=== PATIENT | female | born 1990 | race Caucasian/White ===

== ENCOUNTER → 2018-07-24 14:48 | Outpatient (CLI) | payer OTHER, SELFPAY ==
[2018-07-24 15:11] LABS: Add Manual Diff / Slide Review NO; Basophils Absolute Auto 0 /uL (0-100); Basophils Percent Auto 0.4 % (0-2); Eosinophils Absolute Auto 600 /uL (0-450); Eosinophils Percent Auto 6.7 % (2-4); Hematocrit 40.3 % (36-46); Hemoglobin 13.7 g/dL (12.0-16.0); Lymphocytes Absolute Auto 2000 /uL (1100-4500); Lymphocytes Percent Auto 23.1 % (25-40); Mean Corpuscular Hemoglobin 29.8 PG (26-34); Mean Corpuscular Volume 87.7 fL (80-100); Monocytes Absolute Auto 500 /uL (0-900); Monocytes Percent Auto 5.9 % (3-14); Neutrophils Absolute Auto 5400 /uL (1500-7000); Neutrophils Percent Auto 63.9 % (50-75); Platelet Count 206 X10^3/uL (150-400); Red Blood Cell Count 4.59 X10^6/uL (4.0-5.2); Red Cell Distribution Width 12.3 % (11.6-14.8); White Blood Cell Count 8.5 X10^3/uL (4.5-11.0)
[2018-07-24 15:30] LABS: Alanine Aminotransferase 15 IU/L (9-52); Albumin 4.8 g/dL (3.5-5.0); Albumin Globulin Ratio 1.8 (1.0-2.8); Alkaline Phosphatase 56 U/L (38-126); Aspartate Aminotransferase 20 IU/L (14-36); BUN Creatinine Ratio 16.3 (6-22); Bilirubin Total 0.6 mg/dL (0.2-1.3); Blood Urea Nitrogen 13 mg/dL (7-17); Calcium 9.5 mg/dL (8.4-10.2); Carbon Dioxide 25 mmol/L (22-32); Chloride 103 mmol/L (98-107); Estimated Glomerular Filt Rate > 60.0 mL/min (>60); Globulin 2.6 g/dL (1.7-4.1); Glucose 89 mg/dL (70-100); HEMOLYSIS < 15 (0-50); Potassium 3.5 mmol/L (3.4-5.1); Sodium 138 mmol/L (137-145); Total Protein 7.4 g/dL (6.3-8.2)
[2018-07-24 15:45] LABS: Follicle Stimulating Hormone 2.85 mIU/mL
[2018-07-24 15:46] LABS: Prolactin 21.2 ng/mL (3.0-18.6)
[2018-07-24 16:00] LABS: TSH w/ Reflex to FT4 2.55 uIU/mL (0.47-4.68)
== END ==
PROVIDERS: PCP Family Medicine; Visit Provider Family Medicine
DX: N64.3 Galactorrhea not associated with childbirth (principal); R61 Generalized hyperhidrosis
CPT/HCPCS: 36415; 80053; 83001; 84146; 84443; 85025

== ENCOUNTER → 2018-07-31 07:20 | Outpatient (CLI) | payer OTHER, SELFPAY ==
[2018-07-31 08:57] LABS: Prolactin 19.9 ng/mL (3.0-18.6)
== END ==
PROVIDERS: PCP Family Medicine; Visit Provider Family Medicine
DX: N64.3 Galactorrhea not associated with childbirth (principal); R61 Generalized hyperhidrosis
CPT/HCPCS: 36415; 84146

== ENCOUNTER 2018-08-28 11:59 | Emergency (ER) | payer OTHER, SELFPAY ==
[2018-08-28 12:00] VITALS: BP 117/81; PULSE 70; RESP 16; TEMP 36.4; O2SAT 100; BMI 19.5
[2018-08-28] MEDS: MORPHINE 2 MG/ML INJ IV (13:38)
[2018-08-28] MEDS: ONDANSETRON 4 MG/2 ML INJ IV (13:39)
[2018-08-28] MEDS: SODIUM CHLORIDE 0.9% 500 ML 1000 ML IV (13:39)
[2018-08-28 13:51] LABS: Add Manual Diff / Slide Review NO; Basophils Absolute Auto 100 /uL (0-100); Basophils Percent Auto 0.7 % (0-2); Eosinophils Absolute Auto 300 /uL (0-450); Eosinophils Percent Auto 3.8 % (2-4); Hematocrit 41.5 % (36-46); Hemoglobin 14.3 g/dL (12.0-16.0); Lymphocytes Absolute Auto 1800 /uL (1100-4500); Lymphocytes Percent Auto 23.5 % (25-40); Mean Corpuscular HGB Conc 34.5 % (30-36); Mean Corpuscular Hemoglobin 30.2 PG (26-34); Mean Corpuscular Volume 87.6 fL (80-100); Monocytes Absolute Auto 300 /uL (0-900); Monocytes Percent Auto 4.2 % (3-14); Neutrophils Absolute Auto 5300 /uL (1500-7000); Neutrophils Percent Auto 67.8 % (50-75); Platelet Count 234 X10^3/uL (150-400); Red Blood Cell Count 4.73 X10^6/uL (4.0-5.2); Red Cell Distribution Width 12.5 % (11.6-14.8); White Blood Cell Count 7.8 X10^3/uL (4.5-11.0)
[2018-08-28 13:59] LABS: Alanine Aminotransferase 8 IU/L (9-52); Albumin 4.9 g/dL (3.5-5.0); Albumin Globulin Ratio 1.6 (1.0-2.8); Alkaline Phosphatase 60 U/L (38-126); Amylase 76 U/L (30-110); Aspartate Aminotransferase 20 IU/L (14-36); BUN Creatinine Ratio 17.1 (6-22); Bilirubin Total 0.6 mg/dL (0.2-1.3); Blood Urea Nitrogen 12 mg/dL (7-17); Calcium 9.8 mg/dL (8.4-10.2); Carbon Dioxide 24 mmol/L (22-32); Chloride 108 mmol/L (98-107); Estimated Glomerular Filt Rate > 60.0 mL/min (>60); Globulin 3.1 g/dL (1.7-4.1); Glucose 90 mg/dL (70-100); HEMOLYSIS < 15 (0-50); Lipase 70 U/L (23-300); Potassium 3.5 mmol/L (3.4-5.1); Sodium 141 mmol/L (137-145)
--- NOTE | 2018-08-28 14:12 | DI.US.S_ITS ---
PROCEDURE: US PELVIC COMPLETE INDICATIONS: LLQ PAIN, HX ENDO TECHNIQUE: Real-time scanning was performed of the pelvic organs, with image documentation. Additional endovaginal scanning was necessary due to incomplete visualization of the adnexal and endometrial structures by transabdominal scanning. COMPARISON: None. FINDINGS: Transabdominal scanning: Limited scanning through the kidneys shows no hydronephrosis. No pathologic free abdominal or pelvic fluid. Endovaginal scanning: Uterus: Surgically absent. Ovaries: The right ovary has also been surgically removed. The left ovary measures 3.9 x 1.9-1.9 cm and is within normal limits. No cystic or solid ovarian lesion is evident. Normal left ovarian follicles are present. Blood flow is demonstrated to the left ovary. IMPRESSION: 1. The left ovary is within normal limits. 2. The right ovary and uterus are surgically absent. Dictated by: Dylon Galarza M.D. on 08/28/2018 at 15:18 Approved by: Dylon Galarza M.D. on 08/28/2018 at 15:22
[2018-08-28 15:28] VITALS: BP 120/86; PULSE 72; RESP 18; O2SAT 99
--- NOTE | 2018-08-28 18:47 | ED_ITS ---
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 She states she has had her uterus and right ovary is surgically removed. She has also had a tubal ligation prior to this. She believes that her left lower quadrant pain is related to endometriosis. She complains of s light nausea. No vomiting, no fevers, no chest pain or shortness of breath. She denies any vaginal discharge, vaginal bleeding or concern of sexually transmitted infections. She denies any dysuria urgency frequency or flank pain. She states that she has had several abdominal CTs, and would like to avoid CTs if possible. Related Data Previous Rx's Medication Instructions Recorded acetaminophen-codeine 1 tab PO Q4-6H PRN #7 tab 08/28/18 ondansetron 4 mg PO Q6H PRN #20 tab 08/28/18 Allergies Allergy/AdvReac Type Severity Reaction Status Date / Time Penicillins Allergy Unknown Verified 08/28/18 15:04 NSAIDS (Non-Steroidal Allergy Chest Pain Verified 08/28/18 12:21 Anti-Inflamma Twoqromo-1-RF9 Antimigraine Allergy Chest Pain Verified 08/28/18 12:21 Agents oseltamivir [From Tamiflu] AdvReac Chest Pain Verified 08/28/18 12:21 Review of Systems <LAURA Zuniga - Last Filed: 08/28/18 19:33> Review of Systems GENERAL: Denies chills, fatigue, malaise, fever, sweats. HEENT: Denies sinus pain, ear pain, sore throat, difficulty swallowing, dizziness. RESPIRATORY: Denies dyspnea, cough, wheezing, hemoptysis, sputum. CARDIOVASCULAR: Denies chest pain, palpitations, orthopnea, edema, GASTROINTESTINAL: See HPI : Denies dysuria, frequency, incontinence, hematuria, urinary retention. MUSCULOSKELETAL: denies weakness, joint pain, or bony pain SKIN: Denies rash, skin lesions, or other NEUROLOGIC: Denies weakness, headache, numbness, change in speech, confusion, seizures, incoordination. PSYCHIATRIC: No concerning psychosocial issues. 12 point review of systems is negative except for those stated above PFSH <MELODY Zuniga - Last Filed: 08/28/18 19:33> Medical History (Updated 08/28/18 @ 19:30 by MELODY Zuniga) Endometriosis (Acute) History of hysterectomy (Acute) Social History Smoking Status: Never smoker Social History Smoking Status: Never smoker Exam <MELODY Zuniga - Last Filed: 08/28/18 19:33> Narrative Exam Narrative: GENERAL: This is a well-nourished, well-developed patient, ho lding warm pack on stomach HEAD: Atraumatic. Normocephalic. No temporal or scalp tenderness. EYES: Pupils equal round and reactive. Extraocular motions intact. No scleral icterus. No injection or drainage. ENT: Nose without bleeding, purulent drainage or septal hematoma. Throat without erythema, tonsillar hypertrophy or exudate. Uvula midline. Airway patent. NECK: Trachea midline. No JVD or lymphadenopathy. Supple, nontender, no meningeal signs. CARDIOVASCULAR: Regular rate and rhythm without murmurs, gallops, or rubs. RESPIRATORY: Clear to auscultation. Breath sounds equal bilaterally. No wheezes, rales, or rhonchi. No cough. No increased respiratory effort. No accessory muscle use. GASTROINTESTINAL: Abdomen soft,, nondistended. No hepato-splenomegaly, or palpable masses. Tenderness to palpation of left lower quadrant No guarding. EXTREMITIES: No clubbing, cyanosis, or edema. No joint tenderness, effusion, or edema noted. BACK: Nontender without deformity or crepitance. No flank tenderness. NEURO: AOx3. SKIN: No rash or erythema. Initial Vital Signs Initial Vital Signs: Vital Signs Temperature 97.6 F 08/28/18 12:00 Pulse Rate 70 08/28/18 12:00 Respiratory Rate 16 08/28/18 12:00 Blood Pressure 117/81 08/28/18 12:00 Pulse Oximetry 100 08/28/18 12:00 <Melany Maloney DO - Last Filed: 09/01/18 07:37> Initial Vital Signs Initial Vital Signs: Vital Signs Temperature 97.6 F 08/28/18 12:00 Pulse Rate 70 08/28/18 12:00 Respiratory Rate 16 08/28/18 12:00 Blood Pressure 117/81 08/28/18 12:00 Pulse Oximetry 100 08/28/18 12:00 Course <JENNY ZunigaP-BC - Last Filed: 08/28/18 19:33> Orders Ordered: Discontinued Medications Sodium Chloride (Normal Saline 0.9%) 500 mls @ 1,000 mls/hr IV BOLUS ONE Stop: 08/28/18 13:31 Last Infusion: 08/28/18 15:15 Dose: 0 mls/hr Admin: 08/28/18 13:39 Dose: 1,000 mls/hr Morphine Sulfate (Morphine) 2 mg IV NOW ONE Stop: 08/28/18 13:03 Last Admin: 08/28/18 13:38 Dose: 2 mg Ondansetron HCl (Zofran) 4 mg IV NOW ONE Stop: 08/28/18 13:03 Last Admin: 08/28/18 13:39 Dose: 4 mg Vital Signs - 8 hr 08/28/18 12:00 08/28/18 15:28 Temperature 97.6 F Pulse Rate 70 72 Respiratory Rate 16 18 Blood Pressure 117/81 Blood Pressure [Right Arm] 120/86 Pulse Oximetry 100 99 <Melany Maloney DO - Last Filed: 09/01/18 07:37> Orders Ordered: Discontinued Medications Sodium Chloride (Normal Saline 0.9%) 500 mls @ 1,000 mls/hr IV BOLUS ONE Stop: 08/28/18 13:31 Last Infusion: 08/28/18 15:15 Dose: 0 mls/hr Admin: 08/28/18 13:39 Dose: 1,000 mls/hr Morphine Sulfate (Morphine) 2 mg IV NOW ONE Stop: 08/28/18 13:03 Last Admin: 08/28/18 13:38 Dose: 2 mg Ondansetron HCl (Zofran) 4 mg IV NOW ONE Stop: 08/28/18 13:03 Last Admin: 08/28/18 13:39 Dose: 4 mg Vital Signs - 8 hr 08/28/18 12:00 08/28/18 15:28 Temperature 97.6 F Pulse Rate 70 72 Respiratory Rate 16 18 Blood Pressure 117/81 Blood Pressure [Right Arm] 120/86 Pulse Oximetry 100 99 MDM - Abdominal Pain <Melany Triplett, FIRE TENDER-BC - Last Filed: 08/28/18 19:33> Lab Data Result diagrams: 08/28/18 13:35 08/28/18 13:35 Lab Results 08/28/18 08/28/18 Range/Units 13:35 13:35 WBC 7.8 (4.5-11.0) X10^3/uL RBC 4.73 (4.0-5.2) X10^6/uL Hgb 14.3 (12.0-16.0) g/dL Hct 41.5 (36-46) % MCV 87.6 (80-100) fL MCH 30.2 (26-34) PG MCHC 34.5 (30-36) % RDW 12.5 (11.6-14.8) % Plt Count 234 (150-400) X10^3/uL Neut % (Auto) 67.8 (50-75) % Lymph % (Auto) 23.5 L (25-40) % [place] % (Auto) 4.2 (3-14) % Eos % (Auto) 3.8 (2-4) % Baso % (Auto) 0.7 (0-2) % Neut # (Auto) 5300 (8514-1278) /uL Lymph # (Auto) 1800 (4830-9759) /uL [place] # (Auto) 300 (0-900) /uL Eos # (Auto) 300 (0-450) /uL Baso # (Auto) 100 (0-100) /uL Sodium 141 (137-145) mmol/L Potassium 3.5 (3.4-5.1) mmol/L Chloride 108 H (98-107) mmol/L Carbon Dioxide 24 (22-32) mmol/L BUN 12 (7-17) mg/dL Creatinine 0.70 (0.52-1.04) mg/dL Estimated GFR > 60.0 (>60) mL/min BUN/Creatinine Ratio 17.1 (6-22) Glucose 90 (70-100) mg/dL Calcium 9.8 (8.4-10.2) mg/dL Total Bilirubin 0.6 (0.2-1.3) mg/dL AST 20 (14-36) IU/L ALT 8 L (9-52) IU/L Alkaline Phosphatase 60 (38-126) U/L Total Protein 8.0 (6.3-8.2) g/dL Albumin 4.9 (3.5-5.0) g/dL Globulin 3.1 (1.7-4.1) g/dL Albumin/Globulin Ratio 1.6 (1.0-2.8) Amylase 76 (30-110) U/L Lipase 70 (23-300) U/L Point of care testing: Urine Dip Bedside Urine Glucose Negative Bedside Urine Bilirubin - Negative Bedside Urine Ketone - Negative Urine Specific [place] 1.015 Bedside Urine Occult Blood - Negative Bedside Urine pH 6.5 Bedside Urine Protein - Negative Bedside Urine Urobilinogen - Negative Bedside Urine Nitrite - Negative Bedside Urine Leukocytes - Negative Esterase Imaging Data Pelvis ultrasound: Radiologist's impression: Chart [facility]er Diagnostics DATE TYPE STATUS AUTHOR Hx 08/28/18 14:12 Chandu GalarzadidiJocelyn Paniagua 28, F0 1990 DEP ER, ED.LOC - Main ED 160.02cm 49.895kg BMI: 19.5kg/m? Urogenital-Female Search Chart No Data to Display Chest Pain Chest Pain Chest Pain ONSET Today 15:28 Jocelyn Link 28 F 1990 [place] [address] Ultrasound Report Signed Patient: Jocelyn Link TMR#: [id number] : 1990Acct:[id number] Age/Sex: 28 / FDate of Service: 08/28/18 Loc: ED Accession Number: [id number] Procedure: US pelvic complete Ordering Provider: Melany TriplettP- PROCEDURE: US PELVIC COMPLETE INDICATIONS: LLQ PAIN, HX ENDO TECHNIQUE: Real-time scanning was performed of the pelvic organs, with image documentation. Additional endovaginal scanning was necessary due to incomplete visualization of the adnexal and endometrial structures by transabdominal scanning. COMPARISON: None. FINDINGS: Transabdominal scanning: Limited scanning through the kidneys shows no hydronephrosis. No pathologic free abdominal or pelvic fluid. Endovaginal scanning: Uterus: Surgically absent. Ovaries: The right ovary has also been surgically removed. The left ovary measures 3.9 x 1.9-1.9 cm and is within normal limits. No cystic or solid ovarian lesion is evident. Normal left ovarian follicles are present. Blood flow is demonstrated to the left ovary. IMPRESSION: 1. The left ovary is within normal limits. 2. The right ovary and uterus are surgically absent. Dictated by: Dylon Galarza M.D. on 08/28/2018 at 15:18 Approved by: Dylon Galarza M.D. on 08/28/2018 at 15:22 [facility] Narrative Medical decision making narrative: The patient is a 28-year-old female presents with left lower quadrant abdominal pain. She did not want to get a CT and left absolutely necessary. Given that she does not have a fever, does not have an elevated white blood cell count does not have an acute exam, we have agreed to proceed with a ultrasound at this point time. Had no acute findings. The patient still did not want to get imaging at that point time. I discussed at length return precautions including inability keep down fluids, fever etc. Encouraged follow-up with PCP. I did give the patient a small pain medication and nausea medication prescription. Patient has no questions or concerns upon discharge. <Melany Maloney, DO - Last Filed: 09/01/18 07:37> Lab Data Lab Results 08/28/18 08/28/18 Range/Units 13:35 13:35 WBC 7.8 (4.5-11.0) X10^3/uL RBC 4.73 (4.0-5.2) X10^6/uL Hgb 14.3 (12.0-16.0) g/dL Hct 41.5 (36-46) % MCV 87.6 (80-100) fL MCH 30.2 (26-34) PG MCHC 34.5 (30-36) % RDW 12.5 (11.6-14.8) % Plt Count 234 (150-400) X10^3/uL Neut % (Auto) 67.8 (50-75) % Lymph % (Auto) 23.5 L (25-40) % [place] % (Auto) 4.2 (3-14) % Eos % (Auto) 3.8 (2-4) % Baso % (Auto) 0.7 (0-2) % Neut # (Auto) 5300 (2319-0239) /uL Lymph # (Auto) 1800 (1637-2539) /uL [place] # (Auto) 300 (0-900) /uL Eos # (Auto) 300 (0-450) /uL Baso # (Auto) 100 (0-100) /uL Sodium 141 (137-145) mmol/L Potassium 3.5 (3.4-5.1) mmol/L Chloride 108 H (98-107) mmol/L Carbon Dioxide 24 (22-32) mmol/L BUN 12 (7-17) mg/dL Creatinine 0.70 (0.52-1.04) mg/dL Estimated GFR > 60.0 (>60) mL/min BUN/Creatinine Ratio 17.1 (6-22) Glucose 90 (70-100) mg/dL Calcium 9.8 (8.4-10.2) mg/dL Total Bilirubin 0.6 (0.2-1.3) mg/dL AST 20 (14-36) IU/L ALT 8 L (9-52) IU/L Alkaline Phosphatase 60 (38-126) U/L Total Protein 8.0 (6.3-8.2) g/dL Albumin 4.9 (3.5-5.0) g/dL Globulin 3.1 (1.7-4.1) g/dL Albumin/Globulin Ratio 1.6 (1.0-2.8) Amylase 76 (30-110) U/L Lipase 70 (23-300) U/L Point of care testing: Urine Dip Bedside Urine Glucose Negative Bedside Urine Bilirubin - Negative Bedside Urine Ketone - Negative Urine Specific [place] 1.015 Bedside Urine Occult Blood - Negative Bedside Urine pH 6.5 Bedside Urine Protein - Negative Bedside Urine Urobilinogen - Negative Bedside Urine Nitrite - Negative Bedside Urine Leukocytes - Negative Esterase Discharge Plan Departure Patient Disposition: Home Clinical Impression: Abdominal pain Qualifiers: Abdominal location: left lower quadrant Qualified Code(s): R10.32 - Left lower quadrant pain Discharge Date/Time: 08/28/18 16:14 Interventions: ED Discharge Assessment Last Done: 08/28/18 16:13 Instructions: DI for Abdominal Pain-Adult Activity Restrictions/Additional Instructions: We could not find an objective reason for your abdominal pain today. As we discussed, please come back to the emergency department for any worsening, inability keep down fluids etc. You elected to defer a CT scan at this point time, which I am okay with given her exam and normal white blood cell count I have given you a small prescription of pain and nausea medications. Please follow up with primary care provider. Be aware that the Tylenol with codeine can be constipating and sedating. Do not take it and drive or drink alcohol. Prescriptions: New ondansetron 4 mg tablet,disintegrating 4 mg PO Q6H PRN (Reason: nausea and vomiting) Qty: 20 RF: 0 acetaminophen-codeine 300-15 mg tablet 1 tab PO Q4-6H PRN (Reason: pain) Qty: 7 RF: 0 Referrals: Ivett Patel DO [Primary Care Provider] - <Melany Maloney DO - Last Filed: 09/01/18 07:37> Cosign ED Attending Terrellature Attestation: I was immediately available in the department for consultation. This documentation has been reviewed and I agree with assessment and plan. Supervised by Melany Maloney DO
== END 2018-08-28 16:14 | disposition home or self-care (01) ==
PROVIDERS: Emergency Provider Nurse Practitioner Family; PCP Family Medicine
DX: R10.32 Left lower quadrant pain (principal)
CPT/HCPCS: 36591; 76830; 76856; 80053; 81003; 82150; 83690; 85025; 96361; 96374; 96375; 99283; 99284; J2270; J2405

== ENCOUNTER → 2019-04-17 09:04 | Outpatient (CLI) | payer OTHER, SELFPAY ==
[2019-04-17 09:39] LABS: Add Manual Diff / Slide Review NO; Basophils Absolute Auto 100 /uL (0-100); Basophils Percent Auto 1.2 % (0-2); Eosinophils Absolute Auto 500 /uL (0-450); Eosinophils Percent Auto 9.2 % (2-4); Hematocrit 41.4 % (36-46); Hemoglobin 14.8 g/dL (12.0-16.0); Lymphocytes Absolute Auto 2000 /uL (1100-4500); Lymphocytes Percent Auto 36.9 % (25-40); Mean Corpuscular HGB Conc 35.7 % (30-36); Mean Corpuscular Hemoglobin 30.8 PG (26-34); Mean Corpuscular Volume 86.4 fL (80-100); Monocytes Absolute Auto 300 /uL (0-900); Monocytes Percent Auto 5.8 % (3-14); Neutrophils Absolute Auto 2500 /uL (1500-7000); Neutrophils Percent Auto 46.9 % (50-75); Platelet Count 236 X10^3/uL (150-400); Red Blood Cell Count 4.79 X10^6/uL (4.0-5.2); Red Cell Distribution Width 12.3 % (11.6-14.8); White Blood Cell Count 5.4 X10^3/uL (4.5-11.0)
[2019-04-17 10:09] LABS: Alanine Aminotransferase 9 IU/L (<35); Albumin 5.2 g/dL (3.5-5.0); Albumin Globulin Ratio 1.7 (1.0-2.8); Alkaline Phosphatase 61 U/L (38-126); Aspartate Aminotransferase 24 IU/L (14-36); BUN Creatinine Ratio 12.5 (6-22); Bilirubin Total 0.8 mg/dL (0.2-1.3); Blood Urea Nitrogen 10 mg/dL (7-17); Calcium 10.2 mg/dL (8.4-10.2); Carbon Dioxide 28 mmol/L (22-32); Chloride 103 mmol/L (98-107); Estimated Glomerular Filt Rate > 60.0 mL/min (>60); Glucose 89 mg/dL (70-100); HEMOLYSIS < 15 (0-50); Sodium 142 mmol/L (137-145); Total Protein 8.2 g/dL (6.3-8.2)
[2019-04-17 10:25] LABS: Follicle Stimulating Hormone 6.29 mIU/mL; Free T4, Direct Thyroxine 1.17 ng/dL (0.78-2.19); Luteinizing Hormone 8.63 mIU/mL
[2019-04-17 10:27] LABS: Prolactin 18.1 ng/mL (3.0-18.6)
[2019-04-17 10:38] LABS: Thyroid Stimulating Hormone 1.74 uIU/mL (0.47-4.68)
[2019-04-21 10:35] LABS: Z- Score (Female) -0.1 SD (-2.0 - +2.0)
[2019-04-21 16:03] LABS: Adrenocorticotropic Hormone 11 pg/mL (6-50)
== END ==
PROVIDERS: PCP Family Medicine; Referring Provider Family Medicine; Visit Provider Family Medicine
DX: H53.9 Unspecified visual disturbance (principal); N64.3 Galactorrhea not associated with childbirth; R51 Headache
CPT/HCPCS: 36415; 80053; 82024; 83001; 83002; 84146; 84305; 84439; 84443; 84481; 85025

== ENCOUNTER → 2019-05-05 08:08 | Outpatient (CLI) | payer OTHER, SELFPAY ==
--- NOTE | 2019-05-05 08:09 | DI.US.S_ITS ---
PROCEDURE: US PELVIC COMPLETE INDICATIONS: LEFT PELVIC PAIN TECHNIQUE: Real-time scanning was performed of the pelvic organs, with image documentation. Additional endovaginal scanning was necessary due to incomplete visualization of the adnexal and endometrial structures by transabdominal scanning. COMPARISON: [facility], , PELVIC COMPLETE, 08/28/2018, 14:39. FINDINGS: Transabdominal scanning: Limited scanning through the kidneys shows no hydronephrosis. No pathologic free abdominal or pelvic fluid. Endovaginal scanning: Uterus: Prior hysterectomy. Ovaries: Prior right oophorectomy. The left ovary measures up to 2.1 x 4.2 x 3.7 cm and contains a 2.1 x 1.6 x 2.6 cm soft tissue mass appears solid with elevated vascularity along its periphery. IMPRESSION: Prior hysterectomy and right-sided oophorectomy. Left-sided remaining ovary contains a solid appearing mass with increased vascularity along its periphery. This may represent a hemorrhagic or proteinaceous ovarian cyst with sufficient internal echotexture to mimic a solid mass. Followup ultrasound in 6-8 weeks is recommended and if this appearance persists gynecological surgical consultation would be recommended. Dictated by: Gucci Hampton M.D. on 05/05/2019 at 11:19 Approved by: Gucci Hampton M.D. on 05/05/2019 at 11:29
== END ==
PROVIDERS: PCP Family Medicine; Referring Provider Family Medicine; Visit Provider Family Medicine
DX: R10.2 Pelvic and perineal pain (principal); N83.9 Noninflammatory disorder of ovary, fallopian tube and broad ligament, unspecified; Z90.710 Acquired absence of both cervix and uterus
CPT/HCPCS: 76830; 76856

== ENCOUNTER → 2019-10-28 08:05 | Outpatient (CLI) | payer OTHER, SELFPAY ==
--- NOTE | 2019-10-28 08:06 | DI.US.S_ITS ---
ULTRASOUND OF LEFT BREAST: 10/28/2019 CLINICAL: Palpable left breast lump. Comparison is made to exam dated: 10/28/2019 [facility]. Ultrasound of the left breast was performed on the area of interest. [place] scale images of the real-time examination were reviewed. IMPRESSION: NEGATIVE There is no sonographic evidence of malignancy. There is no mammographic or sonographic abnormality seen in the left breast to correspond with the palpable abnormality, however, clinical followup is recommended. This exam was interpreted at Station ID: [id number]. Electronically Signed By: Lydia Sanchez M.D. lk/:10/28/2019 10:25:30 letter sent: Clinical Evaluation Ultrasound BI-RADS: 1 Negative
--- NOTE | 2019-10-28 08:06 | DI.US.S_ITS ---
ULTRASOUND OF RIGHT BREAST: 10/28/2019 CLINICAL: Palpable right breast lump. Comparison is made to [facility] of the right breast was performed on the area of interest. [place] scale images of the real-time examination were reviewed. IMPRESSION: NEGATIVE There is no sonographic evidence of malignancy. There is no mammographic or sonographic abnormality seen in the right breast to correspond with the palpable abnormality, however, clinical followup is recommended. This exam was interpreted at Station ID: [id number]. Electronically Signed By: Lydia leyva/:10/28/2019 10:26:02 letter sent: Clinical Evaluation Ultrasound BI-RADS: 1 Negative
--- NOTE | 2019-10-28 08:06 | DI.US.S_ITS ---
PROCEDURE: US PELVIC COMPLETE INDICATIONS: FOLLOW-UP OVARIAN MASS TECHNIQUE: Real-time scanning was performed of the pelvic organs, with image documentation. Additional endovaginal scanning was necessary due to incomplete visualization of the adnexal and endometrial structures by transabdominal scanning. COMPARISON: [facility], US, US PELVIC COMPLETE, 05/05/2019, 8:33. FINDINGS: Transabdominal scanning: Limited scanning through the kidneys shows no hydronephrosis. No pathologic free abdominal or pelvic fluid. Endovaginal scanning: Uterus: Uterus is absent. Ovaries: Right ovary is absent. Left ovary measures 38 x 22 x 37 mm. There is previously identified focus of heterogeneous echogenicity within the left ovary. It is less conspicuous compared to prior exam. Multiple adjacent follicles are present. IMPRESSION: 1. Less conspicuous appearance of ovarian focus of heterogeneous echogenicity as described above. This could represent a focus of involuting hemorrhagic cyst. However, other etiology is simply a heterogeneous ovarian tissue of benign etiology. One additional six-month interval pelvic ultrasound follow-up Is recommended. Dictated by: Liv Padilla M.D. on 10/28/2019 at 10:15 Approved by: Liv Padilla M.D. on 10/28/2019 at 10:38
--- NOTE | 2019-10-28 08:06 | DI.MG.S_ITS ---
BILATERAL DIGITAL DIAGNOSTIC MAMMOGRAM 3D/2D: 10/28/2019 CLINICAL: Baseline exam. Bilateral lumps. No prior exams were available for comparison. The tissue of both breasts is extremely dense, which lowers the sensitivity of mammography. No significant masses, calcifications, or other findings are seen in either breast. IMPRESSION: INCOMPLETE: NEEDS ADDITIONAL IMAGING EVALUATION There is no mammographic abnormality seen in either breast to correspond with the palpable abnormalities, however, targeted ultrasound of the bilateral breasts is recommended and will be performed immediately following this exam. This exam was interpreted at Station ID: [id number]. NOTE: For mammograms, a report in lay terms will be sent to the patient. Approximately 15% of breast malignancies will not be visualized mammographically. In the management of a palpable breast mass, a negative mammogram must not discourage biopsy of a clinically suspicious lesion. Electronically Signed By: Lydia leyva/:10/28/2019 09:19:05 ACR BI-RADS Category 0: Incomplete [id number]
== END ==
PROVIDERS: PCP Family Medicine; Referring Provider Family Medicine; Visit Provider Obstetrics & Gynecology
DX: R92.8 Other abnormal and inconclusive findings on diagnostic imaging of breast (principal); N63.10 Unspecified lump in the right breast, unspecified quadrant; N63.20 Unspecified lump in the left breast, unspecified quadrant; N64.3 Galactorrhea not associated with childbirth; N83.9 Noninflammatory disorder of ovary, fallopian tube and broad ligament, unspecified
CPT/HCPCS: 76642; 76830; 76856; 77066; G0279

== ENCOUNTER → 2021-02-15 11:42 | Outpatient (CLI) | payer OTHER, SELFPAY ==
[2021-02-15 14:46] LABS: COVID19 -Nasal RAPID Negative (Negative)
== END ==
PROVIDERS: PCP Family Medicine; Visit Provider Physician Assistant
DX: Z20.822 Contact with and (suspected) exposure to COVID-19 (principal)
CPT/HCPCS: 87635

== ENCOUNTER 2021-02-17 09:48 | Day surgery (SDC) | payer OTHER, SELFPAY ==
[2021-02-17] VITALS (11 sets, daily range): BP systolic 85–120; BP diastolic 47–79; PULSE 60–83; RESP 12–18; TEMP 36.5–37.1; O2SAT 96–100
[2021-02-17] MEDS: ACETAMINOPHEN 325 MG TABLET 650 MG PO (10:28)
[2021-02-17] MEDS: LACTATED RINGERS 1,000 ML 42 ML IV ×2 (10:29→12:42)
--- NOTE | 2021-02-17 11:09 | PM.PREOP ---
Pre-operative Note COVID-19 COVID-19 status: Negative Interval Note History & Physical reviewed/Exam performed by Physician: Yes Changes to H&P: No
[2021-02-17] MEDS: SCOPOLAMINE 1 PATCH TOP (11:21)
[2021-02-17] MEDS: ACETAMINOPHEN 325 MG TABLET 975 MG PO (11:21)
[2021-02-17] MEDS: CLINDAMYCIN 900 MG/50 ML PIGGYBACK 50 MG IV (11:57)
--- NOTE | 2021-02-17 12:15 | SUR.OPER ---
Supine on padded OR bed, head on pillow, arms secured on padded arm boards at <90 degrees abduction. legs uncrossed. Blankets placed under patient's left leg and secured in place with tape. safety belt at abdomen.
[2021-02-17] MEDS: BUPIVACAINE 0.25% (PF) 30 ML, EPINEPHrine 0.15 MG INJ (12:27)
--- NOTE | 2021-02-17 13:27 | PM.OP.1 ---
Operative Date/Time/Diagnoses Date of procedure: 02/17/21 Time of procedure: 12:00 Pre-op diagnosis: Osteochondral defect left 1st metatarsal M95.8 Swelling 1st metatarsophalangeal joint M25.476 Post-op diagnosis: same Procedure & Clinicians Procedure: Unlisted procedure foot or toes, left CPT code 47182-TU, compared to CPT code 27116 * detailed description of procedure was an arthrotomy and repair of the osteochondral defect left 1st metatarsal head with allograft cartilage grafting and platelet rich plasma Same procedure as scheduled: Yes Indications: Patient is a 30-year-old female with a focal osteochondral defect of her left 1st metatarsal head. She has had pain on and off for years endorses swelling and pain of her 1st metatarsophalangeal joint. We discussed the risks and benefits of the procedure. She has been indicated for fixation of the osteochondral defect of the left 1st metatarsal head with drilling osteochondral allograft. We discussed risks of persistent pain, wound healing problems, infection, nerve damage, posttraumatic arthritis, further arthritis and need for additional procedures. We also discussed risks of blood clots myocardial infarction stroke in cardiopulmonary complications associated with general anesthesia. Discussed the object of this procedure is a joint sparing procedure for her focal osteochondral defect. She elected to proceed. Consent was signed in the office. Surgeon: Olimpia Jolly Click Yes if Unassisted: Yes Anesthesia Type: General and Local Operative Notes Findings: Focal osteochondral defect plantar 50% of 1st metatarsal head osteochondral defect measured approximately 4 x 3mm and was found on appearance to have a full-thickness loose cartilage flap when this was removed there was a 4 x 3 mm lesion Closure Type: primary Specimen(s): none sent Prosthetic devices, grafts, tissues, transplants, or devices: Arthrex bio cartilage allograft and platelet rich plasma sealed with Tisseel fibrin Estimated Blood Loss (mL): 2 Blood products transfused: none Tourniquet time (min): 30 Procedure in detail: Patient was seen in the preoperative area the site of surgery marked informed consent confirmed she was brought back to the operating room by the anesthesia team positioned supine on operative table. All bony prominences well padded. Well-padded thigh tourniquet was placed. The left lower extremities prepped and draped in the standard sterile fashion. a formal time-out procedure was performed confirming the patient's side and site of surgery presence of informed consent and ministry pringle appropriate preoperative antibiotic and this penicillin allergic patient 900 of clindamycin was administered. All were in agreement. Attention was turned to the left lower extremity. An Esmarch was used for exsanguination the tourniquet raised in the thigh to 250 mmHg. A longitudinal incision over the 1st MTP joint just medial to the EHL was taken down through the skin and subcutaneous tissues carefully. The EHL was retracted laterally. Capsulotomy was made and the 1st metatarsophalangeal joint was exposed. The 1st metatarsophalangeal joint was terminally plantar flexed and a loose flap of cartilage in the plantar 50% of the joint was identified this was lifted up to expose a 4 x 3 mm full-thickness osteochondral defect. The loose cartilage was trimmed using both a knife blade and a curette to expose the full extent of the lesion. This was debrided back to nice sharp stable cartilage border. At this point, 062 K-wire was used to drill the lesion to stimulate bleeding. This was done under cooling. Next the BioCartilage and PRP mixture was prepared. Blood was drawn by the anesthesia team and spun down to platelet rich plasma in the room and then passed to the back table with this was mixed with the BioCartilage allograft. Next the defect was dried thoroughly and the bio cartilage was applied. This was smoothed out using a [place] elevator making sure that it was not prominent and just a touch recessed to avoid prominence. Once this was in place the Tisseel fibrin glue was placed over the defect and a timer started for 5 minutes. The 1st MTP joint was held in plantar flexion to keep the area dry and free of contact while the fibrin glue solidified. After 5 minutes the joint was taken through range of motion noted to be smooth. The lesion was inspected thoroughly and was not prominent. And filled in very nicely with the allograft. There were no other lesions noted. At this point the wound was irrigated. The tourniquet was released. Hemostasis was achieved. Capsule Was closed with 2-0 Vicryl suture subcutaneous tissues with 4-0 Monocryl in the skin with 4-0 nylon suture. Order% Marcaine with epinephrine was used as local anesthetic. Dressing was placed with Xeroform gauze Matias wrap and an Fabricio bandage. The patient was woken from anesthesia and taken to recovery room in good condition. There no immediate complications from this procedure. Complications: none Post-operative Condition: stable Disposition: PACU Plan for aftercare: Patient will be flatfoot or heel weight-bearing in a postoperative shoe for 2 weeks. Will start range of motion after 1st postoperative appointment and dressing change
[2021-02-17] MEDS: OXYCODONE IR 5 MG TABLET PO ×2 (13:32→13:52)
--- NOTE | 2021-02-17 14:04 | SUR.PHASEII ---
Pt transfered to OPD 6 with SBAR report at bedside to Brianna ZUNIGA. Pt awak, alert, foot elevated, tolerating coffee and apple sauce.
--- NOTE | 2021-02-17 14:25 | SUR.PHASEII ---
pt given discharge instructions. Pt states she understands discharge instructions. pt denies pain . No complaints at present time. Pt States she is ready to go home. Pt . had cup of coffee and cup of gingerale.
== END 2021-02-17 14:30 | disposition home or self-care (01) ==
PROVIDERS: PCP Family Medicine; Referring Provider Podiatrist; Visit Provider Orthopaedic Surgery Foot and Ankle Surgery
PROC: 0QBP0ZZ Excision of Left Metatarsal, Open Approach (ICD-10-PCS; CPT 28292; principal; 2021-02-17 11:15)
DX: M95.8 Other specified acquired deformities of musculoskeletal system (principal); M25.475 Effusion, left foot
CPT/HCPCS: 28899; J0171; J1100; J2250; J2405; J2704; J3010

== ENCOUNTER → 2022-01-04 16:06 | Outpatient (CLI) | payer OTHER, SELFPAY ==
--- NOTE | 2022-01-04 16:08 | DI.RAD.S_ITS ---
PROCEDURE: XR FOOT RT MIN 3V INDICATIONS: foot pain TECHNIQUE: 3 views of the foot were acquired. COMPARISON: [facility], CR, XR FOOT LT MIN 3V, 01/04/2022, 16:21. FINDINGS: Bones: No fractures or dislocations. No suspicious bony lesions. Prominent os navicularis. Soft tissues: No tibiotalar joint effusion. Achilles tendon appears normal. IMPRESSION: Prominent os navicularis Dictated by: Lars Chambers [facility] Interpreted: Favian Astorga MD on 01/04/2022 at 16:36 Transcribed by: ANNAMARIA on 01/04/2022 at 16:36 Approved by: Favian Astorga M.D. on 01/04/2022 at 16:50
--- NOTE | 2022-01-04 16:08 | DI.RAD.S_ITS ---
PROCEDURE: XR FOOT LT MIN 3V INDICATIONS: foot pain TECHNIQUE: 3 views of the foot were acquired. COMPARISON: [facility], CR, XR FOOT RT MIN 3V, 01/04/2022, 16:20. FINDINGS: Bones: No fractures or dislocations. No suspicious bony lesions. Soft tissues: No tibiotalar joint effusion. Achilles tendon appears normal. IMPRESSION: Prominent os navicularis. Dictated by: Lars Chambers [facility] Interpreted: Favian Astorga MD on 01/04/2022 at 16:37 Transcribed by: ANNAMARIA on 01/04/2022 at 16:37 Approved by: Favian Astorga M.D. on 01/04/2022 at 16:50
== END ==
PROVIDERS: PCP Family Medicine; Referring Provider Family Medicine; Visit Provider Family Medicine
DX: M79.671 Pain in right foot (principal); M79.672 Pain in left foot
CPT/HCPCS: 73630

== ENCOUNTER 2022-01-14 10:38 | Emergency (ER) | payer OTHER, SELFPAY ==
[2022-01-14] VITALS (9 sets, daily range): BP systolic 96–133; BP diastolic 66–83; PULSE 57–86; RESP 16–25; TEMP 36.9; O2SAT 97–100
--- NOTE | 2022-01-14 10:50 | DI.RAD.S_ITS ---
PROCEDURE: XR CHEST 1V INDICATIONS: chest pain TECHNIQUE: One view of the chest was acquired. COMPARISON: None. FINDINGS: Surgical changes and devices: None. Lungs and pleura: Lungs are clear. No pleural effusions or pneumothorax. Mediastinum: Mediastinal contours appear normal. Heart size is normal. Bones and chest wall: No suspicious bony lesions. Overlying soft tissues appear unremarkable. IMPRESSION: No acute cardiopulmonary findings Approved by: Elroy Montes De Oca M.D. on 01/14/2022 at 10:54
[2022-01-14 11:08] LABS: Alanine Aminotransferase 10 IU/L (<35); Albumin 4.6 g/dL (3.5-5.0); Albumin Globulin Ratio 1.4 (1.0-2.8); Alkaline Phosphatase 81 U/L (38-126); Aspartate Aminotransferase 20 IU/L (14-36); BUN Creatinine Ratio 12.8 (6-22); Bilirubin Total 0.6 mg/dL (0.2-1.3); Blood Urea Nitrogen 10 mg/dL (7-17); Calcium 9.6 mg/dL (8.4-10.2); Carbon Dioxide 25 mmol/L (22-32); Chloride 103 mmol/L (98-107); Creatine Kinase 30 U/L (30-135); Estimated Glomerular Filt Rate > 60 mL/min (>60); Globulin 3.3 g/dL (1.7-4.1); Glucose 94 mg/dL (70-100); HEMOLYSIS < 15 (0-50); Lipase 91 U/L (23-300); Magnesium 1.9 mg/dL (1.6-2.3); Potassium 3.8 mmol/L (3.4-5.1); Sodium 140 mmol/L (137-145); Total Protein 7.9 g/dL (6.3-8.2)
[2022-01-14 11:13] LABS: Add Manual Diff / Slide Review NO; Basophils Absolute Auto 0 /uL (0-100); Basophils Percent Auto 0.9 % (0-2); Eosinophils Absolute Auto 200 /uL (0-450); Eosinophils Percent Auto 3.8 % (2-4); Hematocrit 39.5 % (36-46); Lymphocytes Absolute Auto 1600 /uL (1100-4500); Lymphocytes Percent Auto 38.4 % (25-40); Mean Corpuscular HGB Conc 35.5 % (30-36); Mean Corpuscular Hemoglobin 30.4 PG (26-34); Mean Corpuscular Volume 85.5 fL (80-100); Monocytes Absolute Auto 300 /uL (0-900); Monocytes Percent Auto 7.2 % (3-14); Neutrophils Absolute Auto 2100 /uL (1500-7000); Neutrophils Percent Auto 49.7 % (50-75); Platelet Count 256 X10^3/uL (150-400); Red Blood Cell Count 4.62 X10^6/uL (4.0-5.2); Red Cell Distribution Width 12.1 % (11.6-14.8); White Blood Cell Count 4.2 X10^3/uL (4.5-11.0)
[2022-01-14 11:20] LABS: Troponin I < 0.012 ng/mL (0.01-0.034)
--- NOTE | 2022-01-14 11:31 | ED_ITS ---
HPI - General Adult General Chief complaint: Shortness of Breath/Dyspnea Stated complaint: chest pain, SOB Time Seen by Provider: 01/14/22 11:07 Source: patient Mode of arrival: Family Vehicle Limitations: no limitations History of Present Illness HPI narrative: 31-year-old female who is here for evaluation of 10 days to 2 weeks of shortness of breath and intermittent chest discomfort. Approximately 1 week ago she went to a walk-in clinic. She states that she was tested for COVID and the flu and this was negative. She continues to have symptoms. No antibiotics. The intermittent chest discomfort that radiates from the center of her chest out. No lower extremity swelling. No underlying lung issues. Has subjective fevers. A cough. Nausea. No vomiting. Also states she is having problems concentrat ing. Does not use control pills. Has had a hysterectomy secondary to endometriosis. Related Data Allergies Allergy/AdvReac Type Severity Reaction Status Date / Time Penicillins Allergy Unknown Verified 04/07/21 09:55 NSAIDS (Non-Steroidal Allergy Chest Pain Verified 04/07/21 09:55 Anti-Inflamma [id number] Antimigraine Allergy Chest Pain Verified 04/07/21 09:55 Agents oseltamivir [From Tamiflu] AdvReac Chest Pain Verified 04/07/21 09:55 Review of Systems Review of Systems ROS Unobtainable: All systems reviewed & are unremarkable except as noted in HPI and below Patient History Medical History Abnormal Pap smear of cervix (~2012) Bilateral carpal tunnel syndrome Bilateral foot pain Bilateral hand pain Bilateral temporomandibular joint pain-dysfunction syndrome Cervical somatic dysfunction Chicken pox (~1995) Cranial somatic dysfunction Dairy product intolerance Endometriosis (~2017) Family history of breast cancer Fractures History of paroxysmal supraventricular tachycardia Intermittent palpitations Lumbar region somatic dysfunction Migraines Non-celiac gluten sensitivity Ovarian cyst Painful menstrual periods (~2003) Right hand pain Segmental and somatic dysfunction of abdomen and other regions SVT (supraventricular tachycardia) Thoracic region somatic dysfunction Upper extremity somatic dysfunction Surgical History (Updated 01/04/22 @ 16:23 by Jhon Stoddard DO) Anesthesia History of cardiac radiofrequency ablation History of dilatation and curettage (~2013) History of hysterectomy (~09/2017) History of tonsillectomy and adenoidectomy (~1995) History of tubal ligation (~07/2017) Family History (Updated 02/07/21 @ 10:07 by Jhon Stoddard DO) Mother Hyperlipidemia Sister Digestive problems Grandfather History of heart disease Grandmother Aneurysm Family/Other Developmental delay Father Gout Social History marital status: number of children: 1 household members: spouse and family lives independently: Yes occupational status: other ([employer]) Smoking Status: Never smoker substance use type: does not use Smoking Status: Never smoker alcohol intake frequency: 0-2 drinks per day Substance Use Type: marijuana Exam Initial Vital Signs Initial Vital Signs: Vital Signs Temperature 98.4 F 01/14/22 10:54 Pulse Rate 78 01/14/22 10:54 Respiratory Rate 19 01/14/22 10:54 Blood Pressure 133/83 01/14/22 10:54 Pulse Oximetry 100 01/14/22 10:54 Oxygen Delivery Method 01/14/22 10:54 Const General: cooperative, comfortable and No ill appearing HENMT Head: normal to inspection and normocephalic Resp Effort & Inspection: normal respiratory effort Auscultation: clear to auscultation bilaterally Cardio Rate: regular rate Rhythm: regular rhythm GI Inspection: normal to inspection Palpation: soft and No tender Skin General: no rashes or lesions noted Neuro General: patient alert, patient awake and moves all extremities Extrem General: normal to inspection and capillary refill normal Psych Appearance: grossly normal and well kempt Course Orders Ordered: ED Orders 01/14/22 10:45 D Dimer Stat 01/14/22 10:50 XR chest 1V Stat Complete Blood Count AUTO DIFF Stat Comprehensive Metabolic Panel Stat Lipase Stat Magnesium Stat Troponin & CK Cardiac Panel Stat EKG-12 Lead Stat 01/14/22 11:43 Covid-19 + FLU A/B + RSV - PCR Stat Vital Signs Vital signs: Vital Signs - 8 hr 01/14/22 10:54 01/14/22 10:56 01/14/22 10:58 Temperature 98.4 F Pulse Rate 78 69 65 Respiratory Rate 19 24 Blood Pressure 133/83 Pulse Oximetry 100 100 100 Oxygen Delivery Method Room Air Room Air Room Air 01/14/22 10:58 01/14/22 11:00 01/14/22 11:00 Temperature Pulse Rate 66 Respiratory Rate 16 Blood Pressure 107/71 108/77 Pulse Oximetry 99 Oxygen Delivery Method Room Air 01/14/22 11:30 01/14/22 11:30 01/14/22 12:00 Temperature Pulse Rate 77 Respiratory Rate 22 Blood Pressure 104/70 107/70 Pulse Oximetry 100 Oxygen Delivery Method 01/14/22 12:00 01/14/22 12:30 01/14/22 12:30 Temperature Pulse Rate 59 L 57 L Respiratory Rate 19 20 Blood Pressure 96/68 Pulse Oximetry 97 99 Oxygen Delivery Method 01/14/22 13:00 01/14/22 13:00 Temperature Pulse Rate 71 Respiratory Rate 25 H Blood Pressure 114/73 Pulse Oximetry 100 Oxygen Delivery Method Room Air Medical Decision Making Lab Data Result diagrams: 01/14/22 10:50 01/14/22 10:50 Labs: Lab Results 01/14/22 01/14/22 01/14/22 Range/Units 10:45 10:50 10:50 WBC 4.2 L (4.5-11.0) X10^3/uL RBC 4.62 (4.0-5.2) X10^6/uL Hgb 14.0 (12.0-16.0) g/dL Hct 39.5 (36-46) % MCV 85.5 (80-100) fL MCH 30.4 (26-34) PG MCHC 35.5 (30-36) % RDW 12.1 (11.6-14.8) % Plt Count 256 (150-400) X10^3/uL Neut % (Auto) 49.7 L (50-75) % Lymph % (Auto) 38.4 (25-40) % Ralls % (Auto) 7.2 (3-14) % Eos % (Auto) 3.8 (2-4) % Baso % (Auto) 0.9 (0-2) % Neut # (Auto) 2100 (0974-3211) /uL Lymph # (Auto) 1600 (4641-8732) /uL Ralls # (Auto) 300 (0-900) /uL Eos # (Auto) 200 (0-450) /uL Baso # (Auto) 0 (0-100) /uL D-Dimer < 215 (<500) ng/ml Sodium 140 (137-145) mmol/L Potassium 3.8 (3.4-5.1) mmol/L Chloride 103 (98-107) mmol/L Carbon Dioxide 25 (22-32) mmol/L BUN 10 (7-17) mg/dL Creatinine 0.78 (0.52-1.04) mg/dL Estimated GFR > 60 (>60) mL/min BUN/Creatinine Ratio 12.8 (6-22) Glucose 94 (70-100) mg/dL Calcium 9.6 (8.4-10.2) mg/dL Magnesium 1.9 (1.6-2.3) mg/dL Total Bilirubin 0.6 (0.2-1.3) mg/dL AST 20 (14-36) IU/L ALT 10 (<35) IU/L Alkaline Phosphatase 81 (38-126) U/L Total Creatine Kinase 30 (30-135) U/L CK-MB (CK-2) TNP CK-MB (CK-2) Rel Index TNP Troponin I < 0.012 (0.01-0.034) ng/mL Total Protein 7.9 (6.3-8.2) g/dL Albumin 4.6 (3.5-5.0) g/dL Globulin 3.3 (1.7-4.1) g/dL Albumin/Globulin Ratio 1.4 (1.0-2.8) Lipase 91 (23-300) U/L SARS-CoV-2 (PCR) (Negative) Influenza A (RT-PCR) (NEGATIVE) Influenza B (RT-PCR) (NEGATIVE) RSV (PCR) (Negative) 01/14/22 Range/Units 11:43 WBC (4.5-11.0) X10^3/uL RBC (4.0-5.2) X10^6/uL Hgb (12.0-16.0) g/dL Hct (36-46) % MCV (80-100) fL MCH (26-34) PG MCHC (30-36) % RDW (11.6-14.8) % Plt Count (150-400) X10^3/uL Neut % (Auto) (50-75) % Lymph % (Auto) (25-40) % Ralls % (Auto) (3-14) % Eos % (Auto) (2-4) % Baso % (Auto) (0-2) % Neut # (Auto) (6031-9804) /uL Lymph # (Auto) (4294-5863) /uL Ralls # (Auto) (0-900) /uL Eos # (Auto) (0-450) /uL Baso # (Auto) (0-100) /uL D-Dimer (<500) ng/ml Sodium (137-145) mmol/L Potassium (3.4-5.1) mmol/L Chloride (98-107) mmol/L Carbon Dioxide (22-32) mmol/L BUN (7-17) mg/dL Creatinine (0.52-1.04) mg/dL Estimated GFR (>60) mL/min BUN/Creatinine Ratio (6-22) Glucose (70-100) mg/dL Calcium (8.4-10.2) mg/dL Magnesium (1.6-2.3) mg/dL Total Bilirubin (0.2-1.3) mg/dL AST (14-36) IU/L ALT (<35) IU/L Alkaline Phosphatase (38-126) U/L Total Creatine Kinase (30-135) U/L CK-MB (CK-2) CK-MB (CK-2) Rel Index Troponin I (0.01-0.034) ng/mL Total Protein (6.3-8.2) g/dL Albumin (3.5-5.0) g/dL Globulin (1.7-4.1) g/dL Albumin/Globulin Ratio (1.0-2.8) Lipase (23-300) U/L SARS-CoV-2 (PCR) Negative (Negative) Influenza A (RT-PCR) Flu a negative (NEGATIVE) Influenza B (RT-PCR) Flu b negative (NEGATIVE) RSV (PCR) Negative (Negative) Imaging Data Chest x-ray: Radiologist's Impression: [address] [address] XRay Report Signed Patient: Jocelyn Link MR#: [id number] : 1990 Acct:[id number] Age/Sex: 31 / F Date of Service: 01/14/22 Loc: ED Accession Number: [id number] ?? Procedure: XR chest 1V Ordering Provider: Shawn Jeffers D.O. PROCEDURE:? XR CHEST 1V ? INDICATIONS:? chest pain ? TECHNIQUE:? One view of the chest was acquired.? ? COMPARISON:? None. ? FINDINGS:? ? Surgical changes and devices:? None.? ? Lungs and pleura:? Lungs are clear.? No pleural effusions or pneumothorax.? ? Mediastinum:? Mediastinal contours appear normal.? Heart size is normal.? ? Bones and chest wall:? No suspicious bony lesions.? Overlying soft tissues appear unremarkable.? ? IMPRESSION:? No acute cardiopulmonary findings ? ? ? Approved by: Elroy Montes De Oca M.D. on 01/14/2022 at 10:54? ECG Data Attestation: I personally reviewed and interpreted this ECG as follows: Interpretation: Sinus rhythm Ventricular rate is 73 Normal axis Normal QRS Normal QTC No ST T wave changes Repeat EKG Sinus rhythm Ventricular rate is 65 Normal axis Normal QRS Normal QTC No ST T wave changes MDM Narrative Medical decision making narrative: Chest x-ray shows no signs of pneumonia. Not hypoxic. Not tachypneic. Clear lung exam. No productive cough. Afebrile. D-dimer is negative. EKG is sinus rhythm. Troponin is negative. No indication for antibiotics. Unsure the exact etiology. I did discuss potential anxiety as being the source although the patient states she does not feel particularly anxious. Have her contact her primary doctor for a follow-up and to discuss further workup if needed. She was given return precautions. She expressed understanding and agreement. Discharge Plan Departure Patient Disposition: Home Clinical Impression: Shortness of breath Instructions: How to Manage Shortness of Breath Activity Restrictions/Additional Instructions: I do recommend that tomorrow you contact your primary doctor for a follow-up to discuss any potential workup of your symptoms. Return to the emergency department for any new symptoms. Referrals: Jhno Stoddard DO [Primary Care Provider] - Stand Alone Forms: Work Release Note
[2022-01-14 12:08] LABS: D Dimer < 215 ng/ml (<500)
[2022-01-14 12:25] LABS: Influenza A - CEPHEID Flu A NEGATIVE (NEGATIVE); Influenza B - CEPHEID Flu B NEGATIVE (NEGATIVE); Respiratory Syncytial Virus Negative (Negative)
[2022-01-14 12:27] LABS: COVID-19 CEPHEID 4-PLEX PCR Negative (Negative)
== END 2022-01-14 13:41 | disposition home or self-care (01) ==
PROVIDERS: Emergency Provider Emergency Medicine; PCP Family Medicine
DX: R06.02 Shortness of breath (principal); R07.9 Chest pain, unspecified; Z20.822 Contact with and (suspected) exposure to COVID-19
CPT/HCPCS: 0241U; 36415; 71045; 80053; 82550; 83690; 83735; 84484; 85025; 85379; 93005; 93010; 99284

== ENCOUNTER → 2022-01-29 13:33 | Outpatient (CLI) | payer OTHER, SELFPAY ==
--- NOTE | 2022-02-22 11:09 | P.HOLT.S_ITS ---
Specification Consultant Report Referral & Results Date Patient Seen: 01/29/22 Requesting provider: Jhon Stoddard Indication: Palpitations Duration of monitoring (days): 14 Diary information: There were 8 patient triggered events all associated with sinus rhythm only Data: Minimum heart rate was 40 beats per minute at 02:18 on 02/05/2022 Maximum heart rate was 137 beats per minute, sinus, at 18:53 on 02/08/2022 There were no pauses of 3 seconds or longer or episodes of atrial fibrillation identified on this study Less than 1% of identified beats were ventricular or supraventricular ectopic in origin, which would classify them as rare. Impression: 14 day cardiac cath technician failing to demonstrate any etiology for patient's reported symptoms of palpitations
== END ==
PROVIDERS: PCP Family Medicine; Referring Provider Family Medicine; Visit Provider Family Medicine
DX: R00.2 Palpitations (principal); R42 Dizziness and giddiness
CPT/HCPCS: 93246; 93248

== ENCOUNTER → 2022-06-13 13:32 | Outpatient (CLI) | payer OTHER, SELFPAY ==
--- NOTE | 2022-06-13 | DI.ECHO.S_ITS ---
[facility]---------+ [facility] +---------+ : : [address] [place] [address] : : : : [id number] : : : : Phone: [phone] Echocardiogram Report + + :Name: FLORA ROWE Study Date: 06/13/2022 Height: 63 in : :[facility] ReadingLocation: Weight: 110 lb : : Gender: Female BSA: 1.5 m2 : :: 1990 Age: 32 yrs BP: 108/74 mmHg: :Reason For Study: PALPITATIONS, SHORTNESS OF BREATH : :Ordering Physician: LEYLA, : :ALYSHA Performed By: Karma Calhoun : :Referring: ALYSHA OGLESBY E : + + Interpretation Summary The ejection fraction is estimated to be 60-65%. Diastolic parameters suggest probable normal left ventricular diastolic function and normal filling pressures. The right ventricle is normal in size and function. There is mild mitral regurgitation. There is mild tricuspid regurgitation. The right ventricular systolic pressure is estimated to be at least 26 mmHg based on an estimated right atrial pressure of 3 mm Hg. Procedure: A two-dimensional transthoracic echocardiogram with color flow and Doppler was performed. The study quality was technically adequate. There is no prior echocardiogram noted for this patient. The patient was in sinus rhythm with heart rates between 58-62 bpm during the exam. Left Ventricle: The left ventricle is normal in size and wall thickness. The ejection fraction is estimated to be 60-65%. Diastolic parameters suggest probable normal left ventricular diastolic function and normal filling pressures. Right Ventricle: The right ventricle is normal in size and function. Atria: The left atrial size is normal. Right atrial size is normal. There is no Doppler evidence for an interatrial shunt. Mitral Valve: The mitral valve is normal in structure and function. There is mild mitral regurgitation. Aortic Valve: The aortic valve opens well. There is no aortic valve stenosis. No aortic regurgitation is present. Tricuspid Valve: The tricuspid valve is normal in structure and function. There is mild tricuspid regurgitation. The right ventricular systolic pressure is estimated to be at least 26 mmHg based on an estimated right atrial pressure of 3 mm Hg. Pulmonic Valve: The pulmonic valve is not well visualized. There is no pulmonic valvular regurgitation. Great Vessels: The aortic root is normal size. The ascending aorta could not be visualized. The IVC is of normal diameter and collapses greater than 50% with a sniff. This suggests a low right atrial pressure of 3 mm Hg. Pericardium/ Pleura There is no pericardial effusion. There is no pleural effusion. MMode/2D Measurements & Calculations LVIDd: 4.8 cm LVOT diam: 2.0 cm LVIDs: 2.9 cm Ao root diam: 2.7 cm FS: 38.9 % Ao Arch Diam (Prox Trans): 2.3 cm IVSd: 0.47 cm LVPWd: 0.51 cm LV colvin. diameter/BSA (cm/m^2): 3.2 LV sys. diameter/BSA (cm/m^2): 2.0 LA A2 area: 16.4 cm2 RA long axis: 4.1 cm LA A4 area: 16.7 cm2 RA area: 13.1 cm2 LA length (vol): 4.8 cm RA vol: 35.3 ml LA vol: 48.5 ml RA : 23.6 ml/m2 LA vol index: 32.4 ml/m2 IVC diam: 2.0 cm RVD1 (basal): 3.0 cm RVD2 (mid): 2.4 cm TAPSE: 2.5 cm Doppler Measurements & Calculations Ao V2 max: 137.7 cm/sec LVOT Max Jonathan: 118.4 cm/sec Ao V2 mean: 103.5 cm/sec LV V1 max P.6 mmHg Ao max P.6 mmHg LV V1 VTI: 22.9 cm Ao mean P.6 mmHg NETO(I,D): 2.5 cm2 Ao V2 VTI: 29.1 cm NETO(V,D): 2.7 cm2 sev ratio: 0.79 NETO indexed to BSA (cm^2/m^2): 1.6 MV E max jonathan: 107.6 cm/sec TR max jonathan: 240.0 cm/sec MV A max jonathan: 64.1 cm/sec TR max P.1 mmHg MV E/A: 1.7 PA pr(Accel): 10.5 mmHg Med Peak E' Jonathan: 13.5 cm/sec E/E' med: 8.0 Lat Peak E' Jonathan: 20.4 cm/sec E/E' lat: 5.3 E/e' average: 6.6 MV dec time: 0.14 sec SV(LVOT): 71.8 ml Reading Physician:07:54 PM
--- NOTE | 2022-06-13 | DI.NM.S_ITS ---
PROCEDURE: NM EXERCISE TREADMILL NON NUC COMPARISON: None. INDICATIONS: Palpitations Shortness of breath FINDINGS: The patient exercised for 10 minutes and 9 seconds reaching 87% of maximum predicted heart rate. Appropriate BP response to exercise. 10.1 METs, ERIS -6%. No diagnostic ST changes, no ectopy and no ectopy during exercise and recovery. IMPRESSION: Low risk, normal treadmill ECG only stress test with fair exercise tolerance (ERIS -6%). Dictated by: Mary Luna MD on 06/13/2022 at 16:51 Approved by: Mary Luna MD on 06/13/2022 at 16:53
== END ==
PROVIDERS: PCP Family Medicine; Referring Provider Internal Medicine Cardiovascular Disease; Visit Provider Internal Medicine Cardiovascular Disease
DX: R00.2 Palpitations (principal); R06.02 Shortness of breath; I08.1 Rheumatic disorders of both mitral and tricuspid valves
CPT/HCPCS: 93017; 93306